=== PATIENT | female | born 1980 | race Caucasian/White ===

== ENCOUNTER 2023-01-04 10:48 | Emergency (ER) | payer BC ==
[~2023-01-04] VITALS: Ht 160 cm; Wt 88.8 kg
== END 2023-01-04 13:37 | disposition home or self-care (01) ==
LOC: ED 10:48
DX: M54.50 Low back pain, unspecified (principal)
CPT/HCPCS: 36415; 80053; 81003; 84703; 85025; 96374; 99284-25; J1885